=== PATIENT | female | born 1935 | race African-American/Black ===

== ENCOUNTER 2018-09-09 13:32 | Inpatient (IN) ==
[2018-09-09] MEDS ORDERED: VENTOLIN HFA INH PRN (15:26)
[2018-09-09] MEDS ORDERED: PHENERGAN IV PRN (15:26)
[2018-09-09] MEDS ORDERED: VANCOMYCIN IV PER PHARMACY MISC SCH (15:26)
[2018-09-09] MEDS ORDERED: SODIUM CHLORIDE 0.9% INJ PRN (15:26)
[2018-09-09] MEDS ORDERED: DESYREL PO PRN (15:26)
[2018-09-09 16:11] LABS: BASO# 0.04 X1000 (0.0-0.2); BASO% 0.4 % (0.0-0.8); EOS# 0.08 X1000 (0.0-0.7); EOS% 0.8 % (0.0-10.0); HEMATOCRIT 35.8 % (37.0-47.0); HEMOGLOBIN 11.2 g/dL (12.0-16.0); IMM GRAN# 0.02 X1000 (0.0-0.04); IMM GRAN% 0.2 % (0.0-0.5); LYMPH# 0.85 X1000 (1.2-3.4); LYMPH% 8.5 % (20.5-51.1); MCH 29.4 PG (27-31); MCHC 31.3 g/dL (33-37); MONO# 0.79 X1000 (0.11-0.59); MONO% 7.9 % (1.7-9.3); MPV 10.5 FL (7.4-10.4); NEUT# 8.27 X1000 (1.4-6.5); NEUT% 82.2 % (42.2-75.2); PLT 200 X1000 (130-400); RBC 3.81 XMIL (4.2-5.4); RDW 13.1 % (11.5-14.5); WBC 10.05 X1000 (4.8-10.8)
[2018-09-09] MEDS: LEVAQUIN 500 MG/D5W 500 MG/100 ML IVPB IV SCH (16:22)
[2018-09-09] MEDS: LOVENOX SUBQ SCH (16:22)
[2018-09-09] MEDS: TYLENOL PO PRN ×2 (16:22→23:51)
[2018-09-09 17:15] LABS: AGAP 13; BUN 12 mg/dL (8-22); CALCIUM 9.9 mg/dL (8.8-10.2); CHLORIDE 101 mmol/L (98-107); COSMO 282; ESTIMATED GFR > 60; GLUCOSE 118 mg/dL (70-104); POTASSIUM 4.4 mmol/L (3.5-5.1); SODIUM 141 mmol/L (136-145); TCO2 27 mmol/L (25-35)
[2018-09-09] MEDS: HUMALOG SUBQ SCH ×2 (19:30→21:57)
[2018-09-09] MEDS ORDERED: VANCOMYCIN 1 GM/NS 1 GM/250 ML IVPB IV SCH (20:00)
[2018-09-09] MEDS: CYMBALTA PO SCH (21:57)
[2018-09-09] MEDS: ICAR-C PO SCH (21:57)
[2018-09-09] MEDS: PATIENT'S OWN MED PO SCH (22:11)
[2018-09-09 23:51] LABS: URINE SOURCE CLEAN CATCH
[2018-09-09 23:54] LABS: BILIRUBIN URINE NEGATIVE (NEGATIVE); BLOOD URINE NEGATIVE (NEGATIVE); COLOR YELLOW; GLUCOSE URINE NEGATIVE (NEGATIVE); KETONE URINE NEGATIVE (NEGATIVE); LEUKOCYTES URINE NEGATIVE (NEGATIVE); NITRITE URINE NEGATIVE (NEGATIVE); PROTEIN URINE NEGATIVE (NEGATIVE); SP GRAVITY URINE 1.004; TURBIDITY URINE CLEAR (CLEAR); UROBILINOGEN URINE NORMAL (NORMAL)
[2018-09-09 23:55] LABS: UR EPITHELIAL CELLS <10 /HPF (<10); URINE BACTERIA NEGATIVE /HPF; URINE RBC <10 /HPF (<10); URINE WBC <10 /HPF (<10)
[2018-09-10] MEDS: HUMALOG SUBQ SCH ×4 (06:49→22:45)
[2018-09-10] MEDS: PRILOSEC PO SCH (06:53)
--- NOTE | 2018-09-10 08:55 | PROGRESS NOTE ---
DATE: 09/10/2018 Ms. Acevedo sustained an avulsion injury to the lower extremity and developed a significant cellulitis of the left lower extremity. This morning, her left leg looks much better. The wound appears dry. There is no gross purulent discharge. She has much less erythema, induration and erythema around the wound and in the low lower leg. She does have a history of hypertension. Her blood pressure has been trending upward. Systolic blood pressures have been in the 140s and 150s whereas her diastolic blood pressures have been in the 80s and 90s. She denies any chest pain, palpitations, or anginal equivalents. 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 Her blood sugars are well controlled. Blood sugars are ranging from 105 to 115. PHYSICAL EXAMINATION: Vital Signs: Temperature 98.3 degrees, pulse 86, respirations 16, BP 151/98. Cardiovascular: Regular rate and rhythm. Lungs: Clear. Abdomen: Soft, nontender, with active bowel sounds. Extremities: There is an avulsion injury to the left lower leg. It is dry. There is no gross discharge. She has less erythema and swelling of the left lower extremity. ASSESSMENT AND PLAN: 1. Avulsion injury of the left lower leg with cellulitis. Clinically she is better. We will continue Levaquin and vancomycin pending wound and blood cultures. 2. Hypertension. Her blood pressure is too high. I will increase the losartan HCT to 100/12.5 mg daily and follow her blood pressure. 3. Type 2 pef-fzorxzj-tcpxptwrn diabetes mellitus. Her blood sugars are well controlled on diet alone. We will continue an 1800 calorie ADA diet, pattern sugars and a Humulin R sliding scale. cc: Elias Melton MD
[2018-09-10] MEDS ORDERED: HYZAAR 50/12.5 MG PO SCH (09:00)
[2018-09-10] MEDS ORDERED: PREVNAR 13 IM ONE (09:02)
[2018-09-10] MEDS ORDERED: BOOSTRIX VACCINE IM ONE (09:03)
[2018-09-10] MEDS ORDERED: LOVENOX ONE (09:05)
[2018-09-10] MEDS ORDERED: LEVAQUIN 500 MG/D5W 500 MG/100 ML IVPB ONE (09:05)
[2018-09-10] MEDS: ASPIRIN EC PO SCH (10:33)
[2018-09-10] MEDS: CLARITIN PO SCH (10:34)
[2018-09-10] MEDS: FLONASE NAS SCH (10:34)
[2018-09-10] MEDS: SINGULAIR PO SCH (10:35)
[2018-09-10] MEDS: MOBIC PO SCH (10:36)
[2018-09-10] MEDS: PATIENT'S OWN MED PO SCH ×2 (13:01→22:43)
[2018-09-10] MEDS: HYZAAR 100/12.5 MG TAB PO SCH (13:01)
[2018-09-10] MEDS: TYLENOL PO PRN (14:42)
[2018-09-10] MEDS: LOVENOX SUBQ SCH (14:45)
[2018-09-10] MEDS: LEVAQUIN 500 MG/D5W 500 MG/100 ML IVPB IV SCH (14:46)
[2018-09-10] MEDS ORDERED: ZOFRAN IV PRN (19:54)
[2018-09-10] MEDS: ICAR-C PO SCH (22:43)
[2018-09-10] MEDS: CYMBALTA PO SCH (22:43)
[2018-09-11] MEDS: TYLENOL PO PRN (05:31)
[2018-09-11] MEDS: HUMALOG SUBQ SCH (06:11)
[2018-09-11] MEDS: PRILOSEC PO SCH (06:11)
[2018-09-11 07:48] VITALS: BP 139/70
[2018-09-11] MEDS ORDERED: TETRACYCLINE PO SCH (08:00)
[2018-09-11] MEDS: FLONASE NAS SCH (08:56)
[2018-09-11] MEDS: ASPIRIN EC PO SCH (08:57)
[2018-09-11] MEDS: CLARITIN PO SCH (08:57)
[2018-09-11] MEDS: SINGULAIR PO SCH (08:57)
[2018-09-11] MEDS: MOBIC PO SCH (08:57)
[2018-09-11] MEDS: HYZAAR 100/12.5 MG TAB PO SCH (08:57)
[2018-09-11] MEDS: PATIENT'S OWN MED PO SCH (09:36)
--- NOTE | 2018-09-12 07:04 | DISCHARGE SUMMARY ---
ADMISSION DATE: 09/09/2018 DISCHARGE DATE: 09/11/2018 DISCHARGE DIAGNOSES: 1. Cellulitis of the left lower extremity. 2. Essential hypertension. 3. Type 2 [id number]-gfpiltodf diabetes mellitus, well controlled. 4. Allergic rhinitis. 5. Gastroesophageal reflux disease. 6. Mild cognitive impairment. 7. Type 2 iwu-zqkzzdd-abhdvyazj diabetes mellitus complicated by polyneuropathy. DISCHARGE INSTRUCTIONS: 1. The patient will return to clinic in 1 week to see me, Dr. Quentin Melton, in anticipation of a transition of care visit. 2. Activity as tolerated. 3. An 1800 calorie ADA diet. MEDICATIONS: 1. Ventolin HFA inhaler 2 puffs q.6 hours p.r.n. wheezing. 2. Aspirin 81 mg daily. 3. Cymbalta 30 mg daily. 4. Flonase nasal spray 1 spray to each nostril daily. 5. Losartan HCT 100/12.5 mg daily. 6. Meloxicam 7.5 mg daily. 7. Omeprazole 40 mg daily. 8. Singulair 10 mg daily. 9. Claritin 10 mg daily. 10. Tasigna 150 mg b.i.d. 11. Trazodone 50 mg at bedtime p.r.n. insomnia. 12. Tetracycline 250 mg q.6 hours for 5 days. PHYSICAL EXAMINATION: General: This is a well-developed, well-nourished, very pleasant, 83-year- old lady in no apparent distress. Vital signs: She is afebrile. Vital signs are stable. Cardiovascular: Regular rate and rhythm. Lungs: Clear. Abdomen: Soft, nontender, with active bowel sounds. Extremities: She has an avulsion injury to the left lower extremity. The wound is dry. Granulation tissue is present. There is no discharge from the wound. The erythema, swelling and induration of the left lower extremity have resolved. HOSPITAL COURSE: Ms. Acevedo was admitted to [facility] for cellulitis of the left lower extremity. She had sustained an avulsion injury to the left lower extremity by getting her leg caught in car door. She had developed increasing redness, swelling, induration and purulent discharge from the wound. The patient was admitted to [facility] and we initially treated her with vancomycin and Levaquin pending cultures. Blood cultures x2 demonstrate no growth at 48 hours. Wound culture grew out methicillin-sensitive Staph aureus. The patient was transitioned to oral tetracycline and will take an additional 5 day course of tetracycline as an outpatient. She does have a longstanding history of hypertension. Her blood pressure was fluctuating. We increased the losartan HCT to 100/12.5 mg daily. Her blood pressure was trending down and we will recheck her blood pressure in the office in 1 week. She has a history of type 2 non insulin-dependent diabetes mellitus complicated by polyneuropathy. She was maintained on an 1800 calorie ADA diet, pattern sugars and a Humulin R sliding scale. A Tdap and Prevnar vaccination were administered during this hospitalization on 09/10/2018. Having reached maximum hospital benefit, the patient was discharged in stable condition. cc: Elias Melton MD
== END 2018-09-11 10:55 | disposition home health service (06) | DRG 603 ==
LOC: DIRADM 13:32 → 3N 14:25
PROVIDERS: ADMIT Internal Medicine; ATTEND Internal Medicine
CPT/HCPCS: 80048; 81001; 82948; 85025; 87040; 87070; 87077; 87186; 94761; A9270; J1650; J1815; J1956; J3370; XXXXX